=== PATIENT | male | born 1970 | race Caucasian/White ===

== ENCOUNTER → 2016-09-26 | Day surgery (SDC) | payer OTHER ==
[~2016-09-26] MED LIST: BUPIVACAINE HCL PF 0.75% 30 ML VIAL ONE; CLINDAMYCIN PHOS 600 MG/4 ML VIAL ONE; CYCL1TAB29 PO; LACTATED RINGER'S 1000 ML INJ 1,000 ML ONE; LIDOCAINE 1.5%/EPINEPHrine 1:200,000 PF SOLN 30 ML AMP ONE; LIPI20TA PO; MIDAZOLAM HCL 5 MG/ML VIAL (1 ML) ONE; MORPHINE SULFATE 4 MG/ML INJ ONE; ONDANSETRON HCL 4 MG/2 ML VIAL ONE; PERC5TAB12 PO; PRED50 PO; PROPOFOL 200 MG/20 ML AMP IV ONE; SODIUM CHLORIDE 0.9% SOLN 100 ML BAG IV ONE; ceFAZolin 2 GM PREMIX 50 ML ONE
--- NOTE | 2016-09-30 06:19 | MP ---
cc: YFN BEAVERS M.D. DATE OF SURGERY 09/26/2016 PREOPERATIVE DIAGNOSIS Right shoulder biceps subluxation, partial rotator cuff tear and impingement syndrome. POSTOPERATIVE DIAGNOSES 1. Right shoulder full-thickness rotator cuff tear. 2. Right shoulder unstable superior labral anterior to posterior (SLAP) tear and unstable posterior labral tear and no significant anterior acromial spurring. PROCEDURE 1. Right shoulder arthroscopic rotator cuff repair. 2. Right shoulder arthroscopic superior labral repair. 3. Right shoulder posterior labral repair. ANESTHETIC Interscalene block and general. SURGEON Yfn Beavers MD BINDER OPERATOR SURGEON Raf RO ESTIMATED BLOOD LOSS Minimum. DRAINS None. SPECIMEN None. COMPLICATIONS None known. IMPLANTS Multiple implants for the superior labrum and the posterior labrum and the rotator cuff were placed. INDICATION Ken Sanders is an adult male with long history of shoulder pain and disability. It is affecting him and his recreational activities as well as his ability to perform his duties at work. He had multiple subtle findings on MRI scan including labral pathology, but it was believed that he had a subluxated, unstable biceps tendon and a lot of his pain was not in accordance with the biceps so the recommendation was to proceed with arthroscopy to evaluate and treat as indicated based on the findings at surgery with a tentative plan to perform a biceps tenodesis and a subacromial decompression. PROCEDURE The patient is given interscalene block. He was brought into the operating room and placed under general anesthetic. He was turned to the lateral decubitus position and the right upper extremity was draped and prepped in the usual sterile fashion with 10 pounds traction. 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 His skill set was medically necessary for the performance of the entire operation/procedure. After time-out was completed, we proceeded with making our posterior portal and introducing a cannula and then insufflating with saline. We noted the articular surfaces to appear healthy, humeral head and glenoid but marked amount of fraying and unstable tearing of the posterior horn and the superior labrum both and there was a fissure demonstrating that the superior labrum was a Type 2 SLAP tear and posteriorly this was unstable all the way to the inferior position and at about the 7 o'clock position on the face of a clock. We initially shaved and trimmed the edges and we looked upward and saw a full-thickness tear of the rotator cuff. We made a lateral-based portal and brought the shaver in through the rotator cuff tear and addressed the labrum first and trimmed back the unstable fibers and then probed this and found it to be unstable, made an anterior accessory portal and, based on findings at the time of probing this, we decided to do superior labral tear and posterior labral repair. Where it had lifted away from the bone, we used the arthroscopic shaver so that we had good bleeding bone and we debrided the labrum so that we had good quality tissue on both sides. We addressed the superior labrum first and our first anchor was at the anterior rim of the biceps tendon and this anchor was placed and upon placing the second anchor the suture was captured in the drill. We proceeded with placement of this anchor and then tied this knot and then went back and put an additional anterior anchor pulling that into position. Then we photographed that and then we placed another anchor about 0.5 cm posterior to the anchor that was on the posterior border of the biceps and then we switched and brought the arthroscope into the anterior viewing portal, viewed backwards and proceeded to placed three anchors. Each anchor we placed we used a 90-degree suture lasso to pass the one limb and then independently tied each one down so it recreated a bumper and then we proceeded to photograph the repair site here and that was solid, no longer unstable. We photographed that. Then we came back into the subacromial space and performed a partial bursectomy and inspected the anterior acromion and there was no unusual spur and so an subacromial acromial decompression was only soft tissue and no bone involvement. Then we had good bleeding bone of the footprint and we decided to do a SpeedBridge technique and we proceeded to tie this down and it was a very solid repair. Final photograph shows the repair where the supraspinatus is being pushed down onto the bleeding bone. We visualized from the inside where placing our suture passes and was a solid anatomic repair. The arthroscopic equipment was removed, closed with absorbable sutures. Steri-Strips applied. Sterile dressing applied, UltraSling applied. The patient was awoken and returned to the recovery room in stable condition. MD JOSÉ MIGUEL Mcnamara/SSB /3:58 PM /5:58
== END | disposition home or self-care (01) ==
LOC: ESDC 08:56
PROVIDERS: ATTEND Orthopaedic Surgery Sports Medicine
DX: M75.121 Complete rotator cuff tear or rupture of right shoulder, not specified as traumatic (principal); M75.41 Impingement syndrome of right shoulder; S43.001A Unspecified subluxation of right shoulder joint, initial encounter; S43.431A Superior glenoid labrum lesion of right shoulder, initial encounter
CPT/HCPCS: 01630; 01991; 29807; 29827; 64417; C1713; J2250; J2270; J2405; J7120; J0690

== ENCOUNTER 2017-02-26 07:41 | Emergency (ER) | payer OTHER ==
[~2017-02-26] VITALS: Ht 177.8 cm; Wt 98.0 kg
[~2017-02-26 07:41] MED LIST changes: -BUPIVACAINE HCL PF 0.75% 30 ML VIAL ONE; -CLINDAMYCIN PHOS 600 MG/4 ML VIAL ONE; -LACTATED RINGER'S 1000 ML INJ 1,000 ML ONE; -LIDOCAINE 1.5%/EPINEPHrine 1:200,000 PF SOLN 30 ML AMP ONE; -MIDAZOLAM HCL 5 MG/ML VIAL (1 ML) ONE; -MORPHINE SULFATE 4 MG/ML INJ ONE; -ONDANSETRON HCL 4 MG/2 ML VIAL ONE; -PROPOFOL 200 MG/20 ML AMP IV ONE; -SODIUM CHLORIDE 0.9% SOLN 100 ML BAG IV ONE; -ceFAZolin 2 GM PREMIX 50 ML ONE
[2017-02-26 07:42] VITALS: BP 141/85; PULSE 75; RESP 20; TEMP 97.6; O2SAT 96
[2017-02-26 07:48] VITALS: PULSE 82; RESP 15; O2SAT 20; O2SAT 96
--- NOTE | 2017-02-26 08:13 | PD ---
HPI Chief Complaint: Pain: Acute or Chronic Time Seen by Provider: 07:53 Travel History International Travel<30 days: No Contact w/Intl Traveler<30days: No Traveled to known affect area: No History of Present Illness HPI This patient complains of pain in his left trapezius muscle. Duration is 4 days. Severity is moderate. It was hurting last night and he couldn't sleep. He discussed it with his primary physician on Monday. He said the pain is worsened since then. No injury. He is right handed and does not overuse this area. He says that the pain travels into his armpit and down to the level of his elbow at times. There is no paresthesia or muscle weakness or sensory loss. No alleviating factors. He tried ibuprofen and a muscle relaxant PFSH Past Medical History Cardiovascular Problems: Yes High Cholesterol: Yes Diminished Hearing: No Gastrointestinal Disorders: Yes (CROHNS DISEASE 1992) Kidney Stones: Yes Medical other: Yes (CHOLESTEROL) Musculoskeletal: Yes (c/o flare ups low back pain a couple times a year.) Psychiatric: No Immunizations Current: Yes Influenza Vaccination: No Past Surgical History Abdominal Surgery: Yes (APPENDIX) Appendectomy: Yes Joint Replacement: No Pacemaker: No Other Surgery: Yes Social History Alcohol Use: Yes (rare) Tobacco Use: No Substance Use: No Allergies-Medications (Allergen,Severity, Reaction): Coded Allergies: Aspirin (Verified Allergy, Mild, HIVES, 02/26/17) UNSURE OF REACTION Penicillin (Verified Allergy, Mild, HIVES, 02/26/17) UNSURE OF REACTION Reported Meds & Prescriptions Reported Meds & Active Scripts Active Tramadol (Tramadol HCl) 50 Mg Tab 50 Mg PO Q6H PRN Flexeril (Cyclobenzaprine HCl) 10 Mg Tab 10 Mg PO TID Reported Lipitor (Atorvastatin Calcium) 20 Mg Tab 20 Mg PO HS Review of Systems General / Constitutional: No: Fever Eyes: No: Visual changes HENT: No: Headaches Cardiovascular: No: Chest Pain or Discomfort Respiratory: No: Shortness of Breath Gastrointestinal: No: Abdominal Pain Genitourinary: No: Dysuria Musculoskeletal: Positive: Myalgias, Pain Skin: No Rash Neurologic: No: Weakness Psychiatric: No: Depression Endocrine: No: Polydipsia Hematologic/Lymphatic: No: Easy Bruising Physical Exam Narrative GASTROINTESTINAL: Abdomen soft, non-tender, nondistended. Positive bowel sounds. No hepato-splenomegaly, or palpable masses. No guarding. SKIN: Focused skin assessment reveals no rash or ulcers. Skin is warm and dry. Palpation shows no induration or nodules. Psych: Normal mood and affect. Normal insight and judgment. NEUROLOGICAL: Awake and alert. Pupils are equal round and reactive. Motor and sensory grossly within normal limits. Five out of 5 muscle strength in all muscle groups. Normal speech. NECK: Symmetrical appearance, midline trachea. No mass or crepitus. Thyroid without enlargement, tenderness, or mass. Gen.: Well-appearing 46-year-old male in no acute distress. Appears well- nourished and stated age Data Data Last Documented VS Vital Signs Date Time Temp Pulse Resp B/P Pulse Ox O2 Delivery O2 Flow Rate FiO2 02/26/17 10:03 97.8 62 17 133/63 99 Room Air Orders Electrocardiogram (02/26/17 ) Chest, Single Ap (02/26/17 ) Ondansetron Inj (Zofran Inj) (02/26/17 10:00) Morphine Inj (Morphine Inj) (02/26/17 10:00) Methylprednisolone So Succ Inj (Solumedr (02/26/17 10:00) MDM Medical Decision Making Medical Screen Exam Complete: Yes Emergency Medical Condition: Yes Medical Record Reviewed: Yes Differential Diagnosis Myalgia, cervical disc herniation, rotator cuff tear Narrative Course I have reviewed the patient's electronic medical record. Been here before for orthopedic complaints such as back pain Is nothing objective here on exam. Appears to have left trapezius pain and is tender there. He is neurologically intact. Discussed options with patient and . The wants testing done. I reviewed his chest x-ray which is normal I offered to order an outpatient cervical spine MRI. He does have radiation down the left arm which could involve cervical nerve root impingement or disc herniation. They have decided to hold off after discussion with her primary physician He requested an injection of steroid as this is felt musculoskeletal pains before I gave him IV Solu-Medrol as well as a dose of morphine and Zofran I prescribe some tramadol They will contact her primary physician to discuss this Diagnosis Primary Impression: Strain of left trapezius muscle Qualified Code: S46.812A - Strain of left trapezius muscle, initial encounter Additional Impression: Radiculopathy of arm Additional Instructions: The patient was advised to follow up with their physician and return if they worsen. The patient was warned about potential sedation for the medications they will receive on prescription. Med/Other Pt SpecificInfo: Prescription(s) given Scripts Tramadol 50 Mg Tab50 Mg PO Q6H PRN (PAIN) #20 TAB Ref 0 Prov:Chase Williamson MD 02/26/17 Disposition: 01 DISCHARGE HOME Condition: Stable Chase Williamson MD Feb 26, 2017 08:13
--- NOTE | 2017-02-26 09:25 | RADRPT ---
EXAM DATE/TIME: 02/26/2017 09:16 [facility] COMPARISON: CHEST SINGLE AP, May 06, 2014, 19:37. INDICATIONS : Chest Pain for three days MEDICAL HISTORY : None. SURGICAL HISTORY : None. ENCOUNTER: Initial ACUITY: 3 days PAIN SCORE: 8/10 LOCATION: Left chest FINDINGS: A single view of the chest demonstrates the lungs to be symmetrically aerated without evidence of mas s, infiltrate or effusion. The cardiomediastinal contours are unremarkable. Osseous structures are intact. CONCLUSION: No acute disease. Jeffrey Conway MD on February 26, 2017 at 9:23 Board Certified Radiologist. This report was verified electronically.
[2017-02-26] MEDS ORDERED: ONDANSETRON HCL 4 MG/2 ML VIAL IV ONE (10:00)
[2017-02-26] MEDS ORDERED: MORPHINE SULFATE 4 MG/ML INJ IV PUSH ONE (10:00)
[2017-02-26] MEDS ORDERED: methylPREDNISolone SOD SUCC 125 MG/2 ML VIAL IV PUSH ONE (10:00)
[2017-02-26 10:03] VITALS: BP 133/63; PULSE 62; RESP 17; TEMP 97.8; O2SAT 99
[2017-02-26] MEDS ORDERED: TRAM50TA PO (10:15)
[2017-02-26 10:25] VITALS: BP 130/76; TEMP 97.8
--- NOTE | 2017-02-27 14:52 | EKG ---
Date Performed: 02/26/2017 Time Performed: 07:53:27 PTAGE: 46 years EKG: Sinus rhythm MODERATE VOLTAGE CRITERIA FOR LVH, CONSIDER NORMAL VARIANT NONSPECIFIC T-WAVE ABNORMALITY Since prev ious tracing, no significant change noted BORDERLINE ECG PREVIOUS TRACING : 05/07/2014 06.13 DOCTOR: Olvin Tyler Interpretating Date/Time 02/27/2017 14:50:17
== END 2017-02-26 10:25 | disposition home or self-care (01) ==
LOC: NEPC 07:41
DX: S46.812A Strain of other muscles, fascia and tendons at shoulder and upper arm level, left arm, initial encounter (principal); R94.31 Abnormal electrocardiogram [ECG] [EKG]; X58.XXXA Exposure to other specified factors, initial encounter
CPT/HCPCS: 71010; 93005; 96374; 96375; 99284; J2270; J2405; J2930